=== PATIENT | female | born 1945 | race Caucasian/White ===

== ENCOUNTER 2024-03-23 15:17 | Outpatient (CLI) | payer MEDICARE, OTHER | END 2024-03-23 15:18 | disposition home or self-care (01) | LOC: CSHMRI 15:17 | PROVIDERS: ATTEND Specialist | DX: M47.26 Other spondylosis with radiculopathy, lumbar region (principal); M48.061 Spinal stenosis, lumbar region without neurogenic claudication; M43.17 Spondylolisthesis, lumbosacral region | CPT/HCPCS: 72148 ==